=== PATIENT | female | born 1970 | race Caucasian/White ===

== ENCOUNTER 2025-09-24 16:54 | Emergency (ER) | payer OTHER, SELFPAY ==
--- NOTE | ~2025-09-24 | CT_ITS ---
CLINICAL HISTORY: right flank pain CT abdomen and pelvis without contrast Comparison: None provided Findings: No consolidation or effusion. Numerous tiny calcifications within the right renal collecting system in the right ureter. Mild right hydroureteronephrosis. Tiny nonobstructing urinary tract calculi in the left kidney. Normal left ureter. Urinary bladder normal. No significant abnormality of the stomach or bowel. Remaining solid organs are normal. Bones intact. IMPRESSION: Trace right hydroureteronephrosis secondary to numerous tiny right renal and right ureteral calculi. This document has been electronically signed by: Sourav Schreiber MD on 09/24/2025 21:25:11
[2025-09-24 17:07] VITALS: BP 151/98; PULSE 82; RESP 22; TEMP 37; O2SAT 94; BMI 32.3
--- NOTE | 2025-09-24 17:11 | ED.GENADULT ---
[facility] - General Adult General Chief complaint: Back Pain/Injury Stated complaint: Back Pain Time Seen by Provider: 09/24/25 18:40 Source: patient Mode of arrival: ambulatory Limitations: no limitations History of Present Illness ED Provider: Dr. Chang [facility] narrative: 54-year-old female presented hospital today for right-sided lower back pain which started 4 4 days ago. Patient stated this atraumatic in nature. She denies any dysuria denies any hematuria. The patient stated that it is worsened when she moves. She does have remote history of IV drug use. Have no history of current IV drug use. No complication with the epidural abscess or heart valve infection in the past. Patient has been taking some Motrin at home with minimal relief. Denies any bowel incontinence denies any saddle paresthesia. Patient denies any urinary retention or numbness down her legs bilaterally. Related Data Previous Rx's ?Medication ?Instructions ?Recorded ketorolac 10 mg tablet 10 mg PO Q8H PRN pain #20 tabs 09/24/25 tamsulosin 0.4 mg capsule 0.4 mg PO DAILY 14 days #14 caps 09/24/25 Allergies Allergy/AdvReac Type Severity Reaction Status Date / Time soy (SOY) Allergy Severe ANAPHYLAXIS Unverified 09/24/25 17:07 Sulfa (Sulfonamide Allergy Severe ANAPHYLAXIS Unverified 09/24/25 17:07 Antibiotics) (SULFA (SULFONAMIDE ANTIBIOTICS)) Review of Systems Review of Systems: Pertinent review of systems as mentioned in HPI. All other system otherwise negative. [facility] Past Medical History [facility] Narrative: Medical history as mentioned in HPI Social History Social History Smoked in Last 30 Days: No Use of substances other than those prescribed or required for medical reasons: No Advance Directives: No Advance Directives Information Provided: No Physical Exam ED Exam Exam: General: Pleasant, no distress, interacting appropriately Head: Normacephalic, atraumatic Gastrointestinal: Soft, non distended, non tender, non guarding Extremities: Right-sided lower back pain on palpation reproducible on exam. Worsened when she is extending her back. Neurological: Awake and alert, no facial droop noted Skin: Warm and dry Psychiatric: Appropriate mood and thoughts Vital Signs: Vital Signs - 24 hr 09/24/25 17:07 09/24/25 18:27 09/24/25 19:22 Temperature 98.6 F 98.2 F 98.1 F Pulse Rate 82 77 72 Respiratory Rate 22 H 18 18 Blood Pressure 151/98 H 150/90 H 150/73 H Pulse Oximetry 94 96 94 Oxygen Delivery Method Room Air Room Air Room Air BMI result Body Mass Index 32.3 Course Course Course Narrative: Rapid medical examination performed in triage by Татьяна Pantoja PA-C: Patient is a 54 year old assigned female at presenting to the emergency department with low back pain. Detailed physical exam and review of systems are deferred to the registered nurse step down. Patient placed back in the waiting room pending room availability. Medications Administered Discontinued Medications Generic Name Dose Route Start Last Admin Trade Name Freq PRN Reason Stop Dose Admin Acetaminophen 975 mg 09/24/25 18:51 09/24/25 20:15 Acetaminophen 325 Mg Tablet PO 09/24/25 18:52 975 mg ONCE ONE Administration Cyclobenzaprine HCl 10 mg 09/24/25 18:51 09/24/25 20:15 Cyclobenzaprine Hcl 10 Mg Tablet PO 09/24/25 18:52 10 mg ONCE ONE Administration Lidocaine 1 patch 09/24/25 18:51 09/24/25 20:14 Lidocaine 4 % Patch Adh..Patch TRANSDERMA 09/24/25 18:52 1 patch ONCE ONE Administration Protocol Medical Decision Making Medical Decision Making MDM Narrative: 54-year-old female presented hospital today for right lower back pain. We are started 4 days ago. This is reproducible on exam. Worsened with extension of her back. I suspect this is likely musculoskeletal in nature. The patient stated that this does feel similar to her last time when she had a pyelonephritis. We will send off a UA for the patient. Lidocaine patch will be given to the patient. We will also give patient a dose of Flexeril here. Tylenol will be given to the patient as well. She has no symptoms that would make me concerned for spinal cord compromise. The patient does not have any midline tenderness on exam. This is atraumatic I have low suspicion for fracture. Patient's CT imaging shows trace hydro ureteral nephrosis on the right side with numerous tiny right renal calculi. We will plan to give patient a dose of tamsulosin and ketorolac p.o. here for the pain. Patient will be discharged with Urology follow up. Differential Diagnosis Differential Diagnoses: The differential diagnosis associated with the presentation includes Quadratus lumborum sprain, low back pain, cauda equina Lab Data [facility] Lab Attestation statement: I reviewed the patient's lab results. Labs: Lab Results 09/24/25 Range/Units 19:23 Urine Color Yellow Urine Appearance Clear Urine pH 6.5 (5.0-9.0) Ur Specific [place] 1.015 (1.005-1.025) Urine Protein Negative (Neg-Trace) mg/dL Urine Glucose (UA) Negative (Negative) mg/dL Urine Ketones Negative (Negative) mg/dL Urine Blood Negative (Negative) Urine Nitrite Negative (Negative) Ur Leukocyte Esterase Negative (Negative) Independent Interpretation I performed an independent interpretation of an: CT Scan Radiology Impression Discussion of test interpretation with radiology: I have reviewed the radiologist's reading. Discharge Plan Discharge Clinical Impression: Nephrolithiasis Patient Disposition: Home, Self-Care Instructions: Kidney Stones (ED) Prescriptions: New tamsulosin 0.4 mg capsule 0.4 mg PO DAILY 14 Days Qty: 14 0RF ketorolac 10 mg tablet 10 mg PO Q8H PRN (Reason: pain) Qty: 20 0RF Rx Instructions: maximum total duration of 5 days from all oral, intranasal, or parenteral formulations Print Language: Congolese
--- OUTSIDE RECORDS SUMMARY | 2025-09-24 18:13 | XMS_ITS | Data Portability ---
Author Organization [facility], , [facility] Address [address] [place] [address] Assessment Encounter Date Assessment Date Assessment LastModified by Organization Details LastModified Time 02/18/2020 02/18/2020 Telemedicine Information: This telmed (audio & visual) appointment provided a MAT prescription. Time Start: 03:00 PM; Time End:03:20 PM Provider Location: home; Patient Location: office Telemedicine Consent Given (verbal): Y 49 YO W OUD FOR ABOUT 6 MONTHS. SHE HAS A REMOTE H/O AUD AND CRACK COCAINE USE, STARTED USING INTRANASAL STREET OPIOIDS ABOUT 6 MONTHS AGO AND WAS UNABLE TO STOP. STARTED SUBOXONE AT [employer] [facility] ABOUT THREE MONTHS AGO (8 MG) BUT RELAPSED AFTER ABOUT ONE MONTH. LAST USED ONE BUNDLE INTRANASAL AT 12 N NO OTHER DRUG USE CURRENTLY EXCEPT SMOKES 1/2 PPD PMH SIG FOR FIBROMYALGIA AND SCIATICA, DEPRESSION AND ADHD TREATED AT [facility] UNSTABLE HOUSING- UNABLE TO AFFORD RENT, TRYING TO GET ON DISABILITY, NO LEGAL PROBLEMS, 4 CHILDREN NOT IN HER CUSTODY WILL RX COMFORT MEDS AND SUBOXONE ENOUGH TO TAKE UP TO 16 MG DAILY. PT UNDERSTANDS RISK OF PPT W/D IF SHE DOES NOT WAIT 24 HOURS BEFORE STARTING F/U 4 DAYS The patient's current phase of treatment is Induction phase, OUD. Assessment Review of recent UDS and LCMS is expected. The patient does meet diagnostic criteria for opioid dependence. The patient is responding to treatment with buprenorphine at OBOT level of care at this phase of treatment. The patient does continue to be a good candidate for this level of care. LFT will be repeated per our clinical protocol. Urine drug testing is ordered today with medical necessity as below. Plan Recommendations for buprenorphine dosing today include continue same dose. Visit frequency recommendations include continue current frequency of visits. Treatment plan review or change TODAY includes continue current level of care. Discussed next step requirements for treatment plan based on response to treatment between now and next visit which will include no change. Referrals made today include none. Prescription monitoring program is reviewed. If reviewed, I have identified agents prescribed to the patient in addition to any issued by our program; the patient is counseled regarding any risk of combining sedating agents. Not available 02/18/2020 16:04:02 03/03/2020 03/03/2020 Telemedicine Information: This telmed (audio & visual) appointment provided a MAT prescription. Time Start: 11:19 AM; Time End:11:29 AM Provider Location: home; Patient Location: office Telemedicine Consent Given (verbal): Y 49 YO W OUD FOR SEEN FOR INITIAL APPT 02/18/20 AND SUCCESSFULLY INDUCED ONTO 4 MG DAILY WHICH SHE HAS BEEN TAKING FOR THE PAST TWO WEEKS. HAD A SEVERE PPT W/D SHE TOOK HER FIRST DOSE LESS THAN [address] OPIOID, BUT CONTINUED TO TAKE 4 MG DAILY WELL USING STREET OPIOIDS. SHE CAN NOW SAFELY INCREASE TO 6 MG TODAY, 8 MG TOMORROW, 12 MG ON SAT AND 16 MG ON SATURDAY NO OTHER DRUG USE CURRENTLY EXCEPT SMOKES 1/2 PPD PMH SIG FOR FIBROMYALGIA AND SCIATICA, DEPRESSION AND ADHD TREATED AT [facility] UNSTABLE HOUSING- UNABLE TO AFFORD RENT, TRYING TO GET ON DISABILITY, NO LEGAL PROBLEMS, 4 CHILDREN NOT IN HER CUSTODY F/U 5 DAYS The patient's current phase of treatment is Stable maintenance, OUD. Assessment Review of recent UDS and LCMS is expected. The patient does meet diagnostic criteria for opioid dependence. The patient is responding to treatment with buprenorphine at OBOT level of care at this phase of treatment. The patient does continue to be a good candidate for this level of care. LFT will be repeated per our clinical protocol. Urine drug testing is ordered today with medical necessity as below. Plan Recommendations for buprenorphine dosing today include continue same dose. Visit frequency recommendations include continue current frequency of visits. Treatment plan review or change TODAY includes continue current level of care. Discussed next step requirements for treatment plan based on response to treatment between now and next visit which will include no change. Referrals made today include none. Prescription monitoring program is reviewed. If reviewed, I have identified agents prescribed to the patient in addition to any issued by our program; the patient is counseled regarding any risk of combining sedating agents. Not available 03/03/2020 12:00:32 03/17/2020 03/17/2020 Telemedicine Information: This telephonic (audio only) appointment provided a MAT prescription. Time Start: 1326; Time End:133 Provider Location: office; Patient Location: home Telemedicine Consent Given (verbal): Y AUDIO ONLY PT FEELS SICK AND CANNOT COME IN, PHONE DOES NOT SUPPORT DOXY 49 YO W OUD FOR SEEN FOR INITIAL APPT 02/18/20 UNABLE TO SUCCESSFULLY GET ONTO SUBOXONE YET. DISCUSSED STRATEGIES INCLUDING MICROINDUCTION. NO OTHER DRUG USE CURRENTLY EXCEPT SMOKES 1/2 PPD PMH SIG FOR FIBROMYALGIA AND SCIATICA, DEPRESSION AND ADHD TREATED AT [facility] HOUS[facility]- UNABLE TO AFFORD RENT, TRYING TO GET ON DISABILITY, NO LEGAL PROBLEMS, 4 CHILDREN NOT IN HER CUSTODY, LIVES W FEMALE PARTNER WHO IS ALSO TRYING TO GET ONTO SUBOXONE WILL RX #17 2 MG FILMS FOR PATIENT TO BRING IN ON SATURDAY FOR MICROINDUCTION JEAN-PIERRE TO BE SET UP. SHE ALSO KNOWS SHE CAN START TAKING THE FILMS EVERY 1-2 HOURS ONCE SHE HAS BEEN WITHOUT STREET OPIOIDS TO A DOSE OF 8-16 MG F/U 5 DAYS The patient's current phase of treatment is Induction phase, OUD. Assessment Review of recent UDS and LCMS is expected. The patient does meet diagnostic criteria for opioid dependence. The patient is responding to treatment with buprenorphine at OBOT level of care at this phase of treatment. The patient does continue to be a good candidate for this level of care. LFT will be repeated per our clinical protocol. Urine drug testing is ordered today with medical necessity as below. Plan Recommendations for buprenorphine dosing today include continue same dose. Visit frequency recommendations include continue current frequency of visits. Treatment plan review or change TODAY includes continue current level of care. Discussed next step requirements for treatment plan based on response to treatment between now and next visit which will include no change. Referrals made today include none. Prescription monitoring program is reviewed. If reviewed, I have identified agents prescribed to the patient in addition to any issued by our program; the patient is counseled regarding any risk of combining sedating agents. Not available 03/17/2020 15:05:11 Plan of Treatment Reminders Order Date Submit Date Provider Last Modified By Organization Details Last Modified Time Details Appointments None recorded. Lab drug screen, urine 05/[address], [address] [place], [address], 0 14:54:42 CMP, serum or plasma [address], [address] [place], [address], 0 10:18:09 CBC w/ diff [address], [address] [place], [address], 0 10:18:09 gamma-gluta myl transferase (ggt), serum [address], [address] [place], [address], 0 10:18:09 hepatic function panel, serum [address], [address] [place], [address], 0 10:18:09 hepatitis A Ab, total, serum [address], [address] [place], [address], 0 10:18:09 HBsAg (hepatitis B surface Ag), serum [address], [address] [place], [address], 0 10:18:10 PT/INR [address], [address] [place], [address], 0 10:18:10 test, urine 2019 [email or web address] Not available 0 05:02:40 HIV 1+2 Ab + HIV1 p24 Ag, QL, rapid, immunoassay , serum or plasma or blood 2019 [email or web address] Not available 0 15:09:17 hepatitis C Ab, serum 2019 [email or web address] Not available 0 15:09:17 Referral None recorded. Procedures None recorded. Surgeries None recorded. Imaging None recorded. Medication Orders None recorded. Patient TargetsNo targets recorded. Patient Instructions Encounter Date Encounter Id Patient Instructions Last Modified By Organization Details Last Modified Time 02/18/2020 [id number] Abstain from opiates for 24 hours unless directed by provider; > If already taking buprenorphine, do not take a dose the day of the induction until you are in the office with your provider; > Comfort medications were recommended. If accepted, please take as prescribed to support your ability to abstain from opiates until your buprenorphine induction; > Keep your buprenorphine RX package closed until you are seen by your provider for induction unless otherwise directed; If you have problems abstaining from opiates, please call the office. As part of your individualized treatment plan and program requirement, you will need to bring your correct prescription bottle and all used and unused medication and counseling verification to each appointment; > Agree to participate in counseling and bring counseling verification to each appointment; > Agree to present for random visits; > Agree to not falsify your urine specimens. Not available 02/18/2020 14:39:28 Education provid ed at today's visit included: Review of patient's individualized treatment plan; Review of program policies: RX, visit, counseling and DATA compliance; Review medication administration technique; Discussion proper care of medication/safety/ lock box; Counseling re: trigger avoidance, relapse prevention and the importance of developing a sober network; Counseling re safe sex and control; Review risk of BZD and BUP, as well as ETOH; Counseling re: Discovery & Drop out prevention in early recovery. [email or web address] Not available 02/18/2020 14:39:28 03/03/2020 [id number] As part of your individualized treatment plan and program requirement, you will need to bring your correct prescription bottle and all used and unused medication and counseling verification to each appointment; > Agree to participate in counseling and bring counseling verification to each appointment; > Agree to present for random visits; > Agree to not falsify your urine specimens. [email or web address] Not available 03/03/2020 11:29:09 Education provid ed at today's visit included: Review of patient's individualized treatment plan; Review of program policies: RX, visit, counseling and DATA compliance; Review medication administration technique; Discussion proper care of medication/safety/ lock box; Counseling re: trigger avoidance, relapse prevention and the importance of developing a sober network; Counseling re safe sex and control; Review risk of BZD and BUP, as well as ETOH; Counseling re: Discovery & Drop out prevention in early recovery. [email or web address] Not available 03/03/2020 11:29:09 03/17/2020 [id number] As part of your individualized treatment plan and program requirement, you will need to bring your correct prescription bottle and all used and unused medication and counseling verification to each appointment; > Agree to participate in counseling and bring counseling verification to each appointment; > Agree to present for random visits; > Agree to not falsify your urine specimens. Not available 03/17/2020 15:00:17 Education provid ed at today's visit included: Review of patient's individualized treatment plan; Review of program policies: RX, visit, counseling and DATA compliance; Review medication administration technique; Discussion proper care of medication/safety/ lock box; Counseling re: trigger avoidance, relapse prevention and the importance of developing a sober network; Counseling re safe sex and control; Review risk of BZD and BUP, as well as ETOH; Counseling re: Discovery & Drop out prevention in early recovery. Not available 03/17/2020 15:00:17 Reason for Referral None Reported. Results Created Date Observation Date Name Description Value Unit Range Abnormal Flag Note LastModifiedBy Organization Detail LastModifiedTime 03/03/20 20 03/03/2020 drug scree n, urine amphetamine NEGATI VE 100 Elect chiquita patiño d by RYAN HERNANDEZ Not Available [employer] [address] [place], [address], 03/04/2020 10:58:20 03/03/20 20 03/03/2020 drug scree n, urine benzodiazepi ne NEGATI VE 100 Not Available [place] [facility] [address] [place], [address], 03/04/2020 10:58:20 03/03/20 20 03/03/2020 drug scree n, urine buprenorphin e POSITI VE 100 Not Available [place] [address] [place], [address], 03/04/2020 10:58:20 03/03/20 20 03/03/2020 drug scree n, urine cocaine metab. POSITI VE 100 abnormal Not Available [place] [address] [place], [address], 03/04/2020 10:58:20 03/03/20 20 03/03/2020 drug scree n, urine methadone NEGATI VE 100 Not Available [place] [address] [place], [address], 03/04/2020 10:58:20 03/03/20 20 03/03/2020 drug scree n, urine opiates POSITI VE 100 abnormal Not Available [place] [address] [place], [address], 03/04/2020 10:58:20 03/03/20 20 03/03/2020 drug scree n, urine oxycodone NEGATI VE 100 Not Available [place] [address] [place], [address], 03/04/2020 10:58:20 03/03/20 20 03/03/2020 drug scree n, urine fentanyl POSITI VE 100 high Not Available [place] [address] [place], [address], 03/04/2020 10:58:20 03/03/20 20 03/03/2020 drug scree n, urine creatinine 128.6 mg/dL >20 Not Available [place] [address] [place], [address], 03/04/2020 10:58:20 03/03/20 20 03/03/2020 drug scree n, urine specific gravity 1.016 1.003- 1.035 Not Available [place] [address] [place], [address], 03/04/2020 10:58:20 03/03/20 20 03/03/2020 drug scree n, urine pH 5.90 4.5-9. 0 Not Available [place] [address] [place], [address], 03/04/2020 10:58:20 03/03/20 20 03/03/2020 drug confi rmati on, urine 6mam 112 NG/mL 10 high Elect chiquita patiño d by RYAN HERNANDEZ Not Available [place] [address] [place], [address], 03/08/2020 11:04:23 03/03/20 20 03/03/2020 drug confi rmati on, urine clonazepam 0, N/F NG/mL 25 Not Available [place] [address] [place], [address], 03/08/2020 11:04:23 03/03/20 20 03/03/2020 drug confi rmati on, urine alprazolam 0, N/F NG/mL 25 Not Available [place] [address] [place], [address], 03/08/2020 11:04:23 03/03/20 20 03/03/2020 drug confi rmati on, urine ampehetamine 0, N/F NG/mL 250 Not Available [place] [address] [place], [address], 03/08/2020 11:04:23 03/03/20 20 03/03/2020 drug confi rmati on, urine benzoylecgon ine 426 NG/mL 100 high Not Available [place] [address] [place], [address], 03/08/2020 11:04:23 03/03/20 20 03/03/2020 drug confi rmati on, urine buprenorphin e ABNORM AL, <20 NG/mL 20 Not Available [facility] [address] [place], [address], 03/08/2020 11:04:23 03/03/20 20 03/03/2020 drug confi rmati on, urine codeine 62 NG/mL 50 high Not Available [facility] [address] [place], [address], 03/08/2020 11:04:23 03/03/20 20 03/03/2020 drug confi rmati on, urine diazepam 0, N/F NG/mL 50 Not Available [facility] [address] [place], [address], 03/08/2020 11:04:23 03/03/20 20 03/03/2020 drug confi rmati on, urine methadone metab 0, N/F NG/mL 100 Not Available [facility] [address] [place], [address], 03/08/2020 11:04:23 03/03/20 20 03/03/2020 drug confi rmati on, urine fentanyl 182 NG/mL 20 high Not Available [facility] [address] [place], [address], 03/08/2020 11:04:23 03/03/20 20 03/03/2020 drug confi rmati on, urine hydrocodone 0, N/F NG/mL 50 Not Available [facility] [address] [place], [address], 03/08/2020 11:04:23 03/03/20 20 03/03/2020 drug confi rmati on, urine hydromorphon e 0, N/F NG/mL 50 Not Available [facility] [address] [place], [address], 03/08/2020 11:04:23 03/03/20 20 03/03/2020 drug confi rmati on, urine lorazepam 0, N/F NG/mL 50 Not Available [facility] [address] [place], [address], 03/08/2020 11:04:23 03/03/20 20 03/03/2020 drug confi rmati on, urine mda 0, N/F NG/mL 250 Not Available [facility] [address] [place], [address], 03/08/2020 11:04:23 03/03/20 20 03/03/2020 drug confi rmati on, urine methadone 0, N/F NG/mL 250 Not Available [facility] [address] [place], [address], 03/08/2020 11:04:23 03/03/20 20 03/03/2020 drug confi rmati on, urine methamphetam ine 0, N/F NG/mL 250 Not Available [facility] [address] [place], [address], 03/08/2020 11:04:23 03/03/20 20 03/03/2020 drug confi rmati on, urine morphine >2,000 , >2,000 NG/mL 50 panic high Not Available [place] [address] [facility] [place], [address], 03/08/2020 11:04:23 03/03/20 20 03/03/2020 drug confi rmati on, urine norbuprenorp omari N/F NG/mL 50 Not Available [facility] [address] [place], [address], 03/08/2020 11:04:23 03/03/20 20 03/03/2020 drug confi rmati on, urine nordiazepam 0, N/F NG/mL 50 Not Available [facility] [address] [place], [address], 03/08/2020 11:04:23 03/03/20 20 03/03/2020 drug confi rmati on, urine norfentanyl 946 NG/mL 20 high Not Available [facility] [address] [place], [address], 03/08/2020 11:04:23 03/03/20 20 03/03/2020 drug confi rmati on, urine norhydrocodo ne 0, N/F NG/mL 100 Not Available [facility] [address] [place], [address], 03/08/2020 11:04:23 03/03/20 20 03/03/2020 drug confi rmati on, urine normeperidin e 0, N/F NG/mL 100 Not Available [facility] [address] [place], [address], 03/08/2020 11:04:23 03/03/20 20 03/03/2020 drug confi rmati on, urine noroxycodone 0, N/F NG/mL 50 Not Available [facility] [place] [address] [place], [address], 03/08/2020 11:04:23 03/03/20 20 03/03/2020 drug confi rmati on, urine oxycodone 0, N/F NG/mL 25 Not Available [facility] [address] [place], [address], 03/08/2020 11:04:23 03/03/20 20 03/03/2020 drug confi rmati on, urine oxymorphone 0, N/F NG/mL 100 Not Available [facility] [address] [place], [address], 03/08/2020 11:04:23 03/03/20 20 03/03/2020 drug confi rmati on, urine pcp 0, N/F NG/mL 50 Not Available [facility] [address] [place], [address], 03/08/2020 11:04:23 03/03/20 20 03/03/2020 drug confi rmati on, urine temazepam 0, N/F NG/mL 50 Not Available [facility] [address] [place], [address], 03/08/2020 11:04:23 03/03/20 20 03/03/2020 drug confi rmati on, urine tramadol 0, N/F NG/mL 100 Not Available [facility] [address] [place], [address], 03/08/2020 11:04:23 03/03/20 20 03/03/2020 drug confi rmati on, urine methylphenid ate 0, N/F NG/mL 50 Not Available [facility] [address] [place], [address], 03/08/2020 11:04:23 Result Notes None recorded. Problems Name Problem SNOMED Code Status Onset Date Resolution Date Notes Provider Name and Address Organization Details Recorded Time Opioid dependence 76359234 Active 2019 Zeinab Hernandez MD [address] [place] [address], [phone], [facility] [employer] [facility], 0 15:40:50 Fibromyalgia 722900576 Active 2019 Zeinab Hernandez MD [address] [place] [address], [phone], [facility] [employer] [facility], 0 15:41:01 Depressive disorder 33874433 Active 2019 Zeinab Hernandez MD [address] [place] [address], [address], [facility] [employer] [facility], 0 15:41:11 Attention deficit hyperactivity disorder 061780705 Active 2019 Zeinab Hernandez MD [address] [place] [address], [address], [facility] [employer] [facility], 0 15:41:19 Problem Notes None recorded. Procedures Surgical History Date Name Laterality Status Provider Name and Address Organization Details Recorded Time 03/17/2020 56604, G0480, G0481 completed Zeinab Hernandez MD [address] [place] [address], [phone], [facility] [employer] [facility], 03/17/2020 15:00:17 03/03/2020 [id number], G0480, G0481 completed Shanon Acosta [facility], 03/03/2020 11:29:10 02/18/2020 [id number], G0480, G0481 completed Homa Sarthak [facility], 02/18/2020 14:39:29 Imaging Results None recorded. Procedure Notes None recorded. Medical Equipment None Reported. Allergies Allergen ID Allergen Name Allergen Category Reaction Reaction Severity Criticality Documentation Date Start Date Code Code System Note Provider Name and Address Organization Details Recorded Time 3805 Substance with sulfonami de structure and antibacte rial mechanism of action (substanc e) medicatio n Not available Not available Not available 02/18/2020 62035 8003 SNOMED Zeinab Hernandez MD [address] [place], [address], [facility] [employer] [facility], 0 15:40:26 Medications Name Sig Start Date Stop Date Status Note LastModified by Organization Details LastModified Time clonidine HCl 0.1 mg tablet Take 1 tablet every 8 hours by oral route. 2019 active Not Available Not Available Not Avai lable Vistaril 50 mg capsule Take 1 capsule every 6 hours by oral route. 2019 active Not Available Not Available Not Avai lable Suboxone 8 mg-[address] 2 films every day by sublingual route. 2019 active Not Available Not Available Not Avai lable Suboxone 2 mg-0.[address] 1 film every day by sublingual route. 2019 active Not Available Not Available Not Avai lable Vitals None Recorded Social History Question Answer Notes LastModified by Organizat ion Details LastModified Time Tobacco Smoking Status Current Every Day Smoker Zeinab Hernandez MD [address] [place] [address], [address], [facility] [employer] [facility], 02/18/2020 15:41:56 How Much Tobacco Do You Smoke? 0.5 PPD Information not available 02/18/2020 Sex: Unknown Functional Status None recorded. Mental Status None recorded. Family History Relationship Description Onset Age of this Age Resolved Age Notes LastModified by Organization Details LastModified Time Father Harmful pattern of use of alcohol Not available 2019 15:41:52 Mother Harmful pattern of use of alcohol Not available 2019 15:41:52 Medical History No medical history recorded. Gynecological HistoryNo gynecological history recorded. Obstetrics History GPAL:G 0 P 0 0 0 0 Past Encounters Encounter ID Performer Location Encounter Start Date Encounter Closed Date Diagnosis/Indication Diagnosis SNOMED-CT Code Diagnosis ICD10 Code Diagnosis IMO Codes Diagnosis Note [id number] Zeinab Hernandez MD MAAnn Marieonel [address] [address] 02/18/2020 14:18:23 02/18/2020 15:37:40 Opioid dependence 90074269 F11.20 [id number] Zeinab Hernandez MD MAAnn Marieonel [address] [phone] 03/03/2020 10:54:17 03/03/2020 12:29:01 Opioid dependence 70215500 F11.20 [id number] Zeinab Hernandez MD MAAnn Marieonel [address] [address] 03/17/2020 13:42:28 03/17/2020 16:26:03 Opioid dependence 08240791 F11.20 Health Concerns Section Related Observation LastModified by Organization Detai ls LastModified Time None Recorded Concern Status LastModified by Organization Details LastModified Time None Recorded Advance Directives Directive None Recorded Payers Insurance Date Sequence Insurance Name Policy Number Policy [place] Covered Member ID [place] Member ID Guarantor Name 02/10/2020 1 [facility] (O) [id number] Melida L Parent [id number] Melida Parent 04/04/2020 1 [facility] PL[facility] (MEDICAID HMO) [id number] Melida L Parent [id number] Melida Parent 02/10/2020 1 [place] [facility] Melida Parent [id number] Melida Parent Notes Date Note Type Note Provider Name and Address Organization Details Recorded Time 02/18/2020 text/html Initial MAT HPI The patient presents today seeking outpatient treatment for opiate dependence. Current readiness for treatment/stage of change is described as action. Onset of substance dependence, beginning with first substance used and all illicit and/or prescription abuse to date and including current substances: 6 MONTHS AGO. Current or most recent route of primary substance use is described as intranasal. The patient denies a history of IV drug use. The patient denies a history of overdose. The patient denies a history of witnessing an overdose. The patient denies having ever used or been prescribed Methadone. The patient reports having ever used or been prescribed Buprenorphine. The patient's last exposure to Buprenorphine was 01/28/2020. Attempts to stop including past and/or most recent: > Inpatient detox: N > Residential and/or Sober Housing: N > Periods of sobriety during incarceration: N > Intensive Outpatient Program: N > Partial Hospitalization Program: N > Medication assisted treatment program(s): Y Most successful program to date has been buprenorphine. The patient describes individual goals for substance dependence treatment as [facility] [employer]. Zeinab Hernandez MD [address] [place] [address], [phone], [facility] [employer] [facility], 02/18/2020 16:04:24 03/03/2020 text/html The patient reports struggling since last visit and reports slip or relapse. MAT HPI They report cravings for opiates and report opiates use since their last visit. They deny cravings for other substances and deny other substance use since their last visit. Withdrawal symptoms are present. SOMETIMES MAT Administration and Program Adherence The patient is compliant with prescribed buprenorphine dose and can describe proper medication administration and technique. The patient denies side effects from the medication. Zeinab Hernandez MD [address] [place] [address], [phone], [facility] [employer] [facility], 03/03/2020 12:00:43 03/17/2020 text/html The patient reports struggling since last visit and reports slip or relapse. MAT HPI They report cravings for opiates and report opiates use since their last visit. They deny cravings for other substances and deny other substance use since their last visit. Withdrawal symptoms are present. SOMETIMES MAT Administration and Program Adherence The patient is compliant with prescribed buprenorphine dose and can describe proper medication administration and technique. The patient denies side effects from the medication. Zeinab Hernandez MD [address] [place] [address], [phone], [facility] [employer] [facility], 03/17/2020 15:05:24 OBGyn Episode No OBEpisode recorded.
[2025-09-24 18:27] VITALS: BP 150/90; PULSE 77; RESP 18; TEMP 36.8; O2SAT 96
[2025-09-24 19:22] VITALS: BP 150/73; PULSE 72; RESP 18; TEMP 36.7; O2SAT 94
[2025-09-24 19:30] LABS: Appearance Urine Clear; Glucose Urine UA Negative (Negative); PH 6.5 (5.0-9.0); Specific Gravity - Urine 1.015 (1.005-1.025)
[2025-09-24] MEDS: Lidocaine 4 % Patch ADH..PATCH 1 PATCH TRANSDERMA (20:14)
[2025-09-24 23:10] VITALS: BP 150/73; PULSE 72; RESP 18; TEMP 36.7; O2SAT 94
== END 2025-09-24 22:45 | disposition home or self-care (01) ==
PROVIDERS: Emergency Provider Student in an Organized Health Care Education/Training Program
DX: N20.0 Calculus of kidney (principal); M54.50 Low back pain, unspecified; R10.22 Pelvic and perineal pain left side
CPT/HCPCS: 74176; 81003; 99284

== ENCOUNTER → 2025-09-24 19:56 | Outpatient (BNV) | payer OTHER, SELFPAY | PROVIDERS: Emergency Provider Student in an Organized Health Care Education/Training Program; Visit Provider Radiology Diagnostic Radiology | DX: N20.0 Calculus of kidney (principal); N20.1 Calculus of ureter | CPT/HCPCS: 74176 ==